=== PATIENT | female | born 1955 | race Caucasian/White ===

== ENCOUNTER 2017-11-12 18:59 | Emergency (ER) | payer BC ==
[~2017-11-12] VITALS: Ht 160 cm; Wt 47.7 kg
[~2017-11-12 18:59] MED LIST: CIPRO500 MG PO; CLARITIN10 MG PO; FLOMAX0.4 MG PO; PATADAY2.5 ML BOTH EYES; PERCOCET 5/31 TABLET PO; RAMIPRIL5 MG PO; ZOFRAN ODT4 MG PO
[2017-11-12] MEDS ORDERED: LIDODERM 5% P1 PATCH TD (21:10)
[2017-11-12] MEDS ORDERED: FLEXERIL10 MG PO (21:10)
[2017-11-12] MEDS ORDERED: PERCOCET 5/31 TABLET PO (21:39)
[2017-11-12 21:52] VITALS: BP 153/83
== END 2017-11-12 21:53 | disposition home or self-care (01) ==
LOC: EME 18:59
DX: M54.32 Sciatica, left side (principal); I10 Essential (primary) hypertension; Z87.442 Personal history of urinary calculi; Z96.649 Presence of unspecified artificial hip joint
CPT/HCPCS: 73502; 99281; 99284; J1885; J2405; J3010